=== PATIENT | female | born 1940 | race Caucasian/White ===

== ENCOUNTER → 2016-07-16 | Outpatient (CLI) | payer OTHER, MEDICARE ==
[~2016-07-16] MED LIST: CALC600T9 PO; CATAPLEX B PO; CHOL2000 PO; DICL1GEL12 EX; DOCU100C PO; LAMO100T PO; MRLP17X PO; PARO1TAB27 PO; POTA2.5T PO; PROB1TAB16 PO; ZOLP10TA PO
--- NOTE | 2016-07-17 14:05 | MAMMOGRAPHY REPORT ---
BILATERAL DIGITAL SCREENING MAMMOGRAM WITH CAD: 07/16/2016 CLINICAL HISTORY: Routine screening. Patient has no complaints. TECHNIQUE: Current study was also evaluated with a Computer Aided Detection (CAD) system. Bilatera l CC and MLO views were obtained. COMPARISON: Comparison is made to exams dated: 07/13/2015 mammogram, 06/30/2014 mammogram, 05/18/2013 m ammogram, 06/16/2011 mammogram, 01/10/2010 mammogram, and 01/09/2009 mammogram - [facility]. BREAST COMPOSITION: There are scattered areas of fibroglandular density in both breasts. FINDINGS: There is a small cluster of calcifications within the left subareolar breast, for which sp ot magnification views are recommended for further evaluation. The remainder of both breasts are stable compared to prior exams, without suspicious masses, calcifi cations, or areas of architectural distortion noted. A biopsy marker clip is again noted in the lef t anterior breast. Other scattered bilateral benign-appearing calcifications are stable. IMPRESSION: ACR BI-RADS CATEGORY 0: INCOMPLETE EVALUATION: NEED ADDITIONAL IMAGING EVALUATION Left breast calcifications, for which additional imaging evaluation is recommended. The patient merline l be called to schedule an appointment. Approximately 10% of breast cancers are not detected with mammography. A negative mammographic repor t should not delay biopsy if a clinically suggestive mass is present. Brooke Zapata M.D. ah/:07/16/2016 16:01:19 Studio Operator: Vance TORRES(R)(M), [facility] letter sent: Addl Imaging 0 BI-RADS Code: ACR BI-RADS Category 0: Incomplete Evaluation: Need Additional Imaging Evaluation
== END | disposition home or self-care (01) ==
LOC: C.MAMM 09:59
PROVIDERS: ATTEND Obstetrics & Gynecology
DX: Z12.31 Encounter for screening mammogram for malignant neoplasm of breast (principal); R92.1 Mammographic calcification found on diagnostic imaging of breast

== ENCOUNTER → 2016-07-24 | Outpatient (CLI) | payer OTHER, MEDICARE ==
--- NOTE | 2016-07-24 12:55 | MAMMOGRAPHY REPORT ---
UNILATERAL LEFT DIGITAL DIAGNOSTIC MAMMOGRAM: 07/24/2016 CLINICAL HISTORY: 75-year-old woman called back from screening mammography for new grouped microcalci fications in the anterior left breast. Family history of breast cancer = mother. Personal history o f prior benign left breast biopsy. TECHNIQUE: Spot magnification left CC and ML views were obtained. COMPARISON: Comparison is made to exams dated: 07/16/2016 mammogram, 07/13/2015 mammogram, 06/30/2014 ma mmogram, 05/18/2013 mammogram, 06/16/2011 mammogram, and 02/05/2010 ultrasound biopsy - [facility]. BREAST COMPOSITION: There are scattered areas of fibroglandular density in the left breast. FINDINGS: There is a tiny, 2 mm cluster of microcalcifications in the 12:00 anterior subareolar left breast that is new compared to prior mammograms. On some of the magnification views it appears to b e forming a rim calcification which is benign. However at this point in time the rim is incomplete a nd it remains an indeterminate cluster. No associated mass or architectural distortion. No other ochoa spicious microcalcifications are seen. There are scattered benign coarse calcifications in the anter ior left breast and a stable metallic biopsy marker. We discussed options of short interval follow-u p mammograms versus tissue sampling with stereotactic biopsy and the patient would prefer to biopsy a t this time. IMPRESSION: ACR BI-RADS CATEGORY 4B: INTERMEDIATE SUSPICION FOR MALIGNANCY 1. Left breast stereotactic biopsy is recommended for a new 2 mm cluster of indeterminate microcalci fications in the 12:00 anterior subareolar left breast. These results and recommendations were discussed with the patient at the time of the exam. She tenta tively scheduled the biopsy prior to leaving our department. Approximately 10% of breast cancers are not detected with mammography. A negative mammographic report should not delay biopsy if a clinically suggestive mass is present. Abiola Anderson M.D. ay/:07/24/2016 12:06:19 Nursing Associate: Irma TORRES(Myron)(M), [facility] letter sent: Abnormal 4/5 BI-RADS Code: ACR BI-RADS Category 4B: Intermediate Suspicion For Malignancy
== END | disposition home or self-care (01) ==
LOC: C.MAMM 11:14
PROVIDERS: ATTEND Obstetrics & Gynecology
DX: R92.0 Mammographic microcalcification found on diagnostic imaging of breast (principal)

== ENCOUNTER → 2016-07-26 | Outpatient (CLI) | payer OTHER, MEDICARE ==
[2016-07-26 11:05] LABS: ALT/SGPT 30 U/L (12-78); AST/SGOT 16 U/L (15-37); BLOOD UREA NITROGEN 14 mg/dl (7-18); BUN/CREATININE RATIO 17.4 (10-20); CARBON DIOXIDE 26 mmol/L (21-32); CHLORIDE 110 mmol/L (98-107); CREATININE 0.78 mg/dl (0.60-1.20); GLUCOSE 103 mg/dl (70-99); SODIUM 144 mmol/L (136-145)
[2016-07-26 11:15] LABS: ALB/GLOB RATIO 1.2 (0.9-2); ALKALINE PHOSPHATASE 47 U/L (45-117); CHOLESTEROL 239 mg/dl (0-200); CHOLESTEROL/HDL RATIO 2.3; HDL CHOLESTEROL 105 mg/dl; LDL CHOLESTEROL CALCULATED 121 mg/dl; TRIGLYCERIDES 64 mg/dl (0-150); VERY LOW DENSITY LIPOPROT CALC 13 mg/dl
--- NOTE | 2016-07-31 09:27 | CODING QUERY MEDICAL NECESSITY ---
SUPPORTING DIAGNOSIS NEEDED Shelley PA, A supporting diagnosis is required for the test/procedure performed on this patient in order for us to be reimbursed by the patient's insurance. Please provide a supporting diagnosis for the following test/procedure listed below next to the test name along with your signature. *If there is no additional diagnosis for this patient that would support the following test/procedure please document that below next to the test/procedure. Test(s)/Procedure(s) that require a supporting diagnosis: * ([id number]) VITAMIN D ASSAY DIAGNOSIS: DATE OF SERVICE: 07/26/16 Provider Signature: Date: Thank you Richy Gaxiola [facility] Information Management Once completed, please kindly fax back to [phone] For questions please call [phone]
== END | disposition home or self-care (01) ==
LOC: C.LABBC 07:45
PROVIDERS: ATTEND Physician Assistant Medical
DX: R53.82 Chronic fatigue, unspecified (principal); E03.9 Hypothyroidism, unspecified; K58.9 Irritable bowel syndrome, unspecified; M85.80 Other specified disorders of bone density and structure, unspecified site

== ENCOUNTER → 2016-08-04 | Outpatient (CLI) | payer OTHER, MEDICARE ==
--- NOTE | 2016-08-04 13:29 | Discharge Instructions ---
Discharge Instructions Procedure Procedure Date: Aug 04, 2016. Reason for visit: Left Calcs. Discharge Discharge Date: Aug 04, 2016. Discharge Diagnosis: post left breast stereotactic guided biopsy Instructions Activity Recommendations: Additional Limitations (see below) Return to School/Work: no limitations Recommended Home Diet: No Limitations Provider Instructions: ACTIVITY RECOMMENDATIONS: * No lifting, pushing, pulling or exercising the affected side for three days. RETURN TO SCHOOL/WORK: * You may return to work/school after the procedure, but do not perform any strenuous activities for 24 to 48 hours. MEDICATIONS: * Tylenol (two 325 mg) every four to six hours if needed for mild pain (if not allergic to Tylenol). DIET: * Resume previous diet. SPECIAL CARE INSTRUCTIONS: * Keep biopsy site dry for 24 hours. May shower after 24 hours, but do not soak (bathe) incision. * May remove Tegaderm (plastic patch) tomorrow AFTER showering. * Leave the steri-strips on for one week. Allow the steri-strips to fall off by themselves. If not off after one week, you may remove them. You may place a Bandaid crosswise over the strips, if desired. * Apply ice 10 minutes on and 10 minutes off as needed. * Wear a bra at bedtime to sleep more comfortably for 2-3 days. * Your referring physician should have the results after approximately 5 to 7 business days. * Call for unusual bleeding, fever, drainage, etc or if you have any questions call [phone] during normal business hours or after hours call Dr Anderson, . FOLLOW UP VISIT: Follow-up with Referring Physician as scheduled. Allergies Coded Allergies: Barium (Verified Allergy, Mild, ITCHING, 03/09/15) Ceftriaxone (Verified Allergy, Unknown, DIFFICULTY SLEEPING, 03/09/15) Fluoxetine (Verified Allergy, Unknown, HEART PALPITATIONS, 03/09/15) Metoclopramide (Verified Allergy, Unknown, HEART PALPITATIONS, 03/09/15) Sulfa Drugs (Verified Allergy, Unknown, UNKNOWN, 03/09/15) Amoxicillin (Verified Adverse Reaction, Mild, DIARRHEA, 03/09/15) Clavulanic Acid (Verified Adverse Reaction, Mild, DIARRHEA, 03/09/15) Nitrofurantoin (Verified Adverse Reaction, Mild, ITCHY, 03/09/15) Methylprednisolone (Unverified Adverse Reaction, Unknown, heart palpitations, 03/09/15) Heidi Jacques Recommendations: Call your doctor if: * Temperature above 101 degrees * Pain not relieved by pain medicine ordered * There is increased drainage or redness from any incision * You have any unanswered questions or concerns. Your Doctors Instructions noted above were prepared by provider Abiola Anderson. Patient Signature Section: Patient Instructions Signature Page Fannie Gutierrez Patient (or Guardian) Signature/Date: I have read and understand the instructions given to me by my caregivers. Caregiver/RN/Doctor Signature/Date: The above-named patient and/or guardian has received patient instructions on this date. + Original Patient Signature Page (only) stays with chart. Please make copy for patient.
--- NOTE | 2016-08-05 08:03 | MAMMOGRAPHY REPORT ---
STEREOTACTIC GUIDED BIOPSY LEFT BREAST: 08/04/2016 CLINICAL HISTORY: Indeterminate 2 mm cluster of microcalcifications in the 12:00 anterior left breast . Patient presented for stereotactic biopsy. COMPARISON: Comparison is made to exams dated: 07/16/2016 mammogram, 07/24/2016 mammogram, 07/13/2015 ma mmogram, 06/30/2014 mammogram, 05/18/2013 mammogram, and 06/16/2011 mammogram - [facility]. PATIENT CONSENT: After explaining the risks, benefits and alternatives of the procedure to the patien t, informed consent was obtained both verbally and in writing. Specific risks include: Bleeding, inf ection, puncture of adjacent structure, pain, nontarget biopsy, sampling error, metal allergy and med ication reaction. PROCEDURE DESCRIPTION: A time-out was performed and the left breast was confirmed as the site of biop sy. The patient was placed prone on the stereotactic biopsy table and the breast was placed in CC fro m above compression. A a operator image was obtained that demonstrated the clustered microcalcifications i n question. They are amenable to sterotactic biopsy. Then +15 and -15 stereo pair images were obta ined. The calcifications were targeted utilizing the coordinates obtained by the computer. The skin was prepped with Betadine. 1% Lidocaine with and without epinipherine was administered as local anest hesia. A small skin incision was made. Through the incision, the needle was inserted to the depth de termined by the computer. 7 samples were obtained using a zeenworldiva 9-gauge vacuum-assisted biopsy device. The specimen radiograph demonstrated several chemical sales representative microcalcifications, therefore, a dumbbell shaped metallic marker was placed at the biopsy site. There was no immediate complication. Hemostasis was achieved after several minutes of manual compression. The samples were sent to pathyuliet nieves in two appropriately labeled containers, "with calcifications" and "without calcifications". All of the samples were obtained from the same single biopsy site. Postprocedure CC and ML views of the left breast were obtained. There is a new dumbbell shaped meta llic biopsy marker and no significant hematoma in the 12:00 anterior left breast, at the site of the biopsied cluster of microcalcifications. There is a stable ribbon shaped clip in the lower outer ant erior left breast, from prior benign biopsy. IMPRESSION: STEREOTACTIC GUIDED BIOPSY Status post left breast stereotactic guided biopsy of a small cluster of microcalcifications in the 1 2:00 anterior breast, with dumbbell-shaped metallic biopsy marker placed at the site. The patient will receive notification of the biopsy results from her referring physician. Abiola Anderson M.D. ay/:08/04/2016 13:48:08 Pyrotechnist: Irma TORRES(Myron)(M), [facility]
--- NOTE | 2016-08-05 08:03 | MAMMOGRAPHY REPORT ---
UNILATERAL LEFT DIGITAL DIAGNOSTIC MAMMOGRAM: 08/04/2016 CLINICAL HISTORY: Status post left breast stereotactic biopsy of a cluster of microcalcifications in the anterior aspect of the breast. Please refer to the report from left breast stereotactic biopsy performed at the same time for full d etail. IMPRESSION: POST PROCEDURE IMAGING FOR MARKER PLACEMENT Please refer to the report from left breast stereotactic biopsy performed at the same time for full d etail. Approximately 10% of breast cancers are not detected with mammography. A negative mammographic report should not delay biopsy if a clinically suggestive mass is present. Abiola Anderson M.D. ay/:08/04/2016 13:23:23 Wetlands Conservation Laborer: Irma TORRES(Myron)(M), [facility] BI-RADS Code: Post Procedure Imaging For Marker Placement
== END | disposition home or self-care (01) ==
LOC: C.MAMM 12:30
PROVIDERS: ATTEND Obstetrics & Gynecology
DX: R92.0 Mammographic microcalcification found on diagnostic imaging of breast (principal); N60.12 Diffuse cystic mastopathy of left breast; N60.82 Other benign mammary dysplasias of left breast

== ENCOUNTER → 2016-10-14 | Outpatient (CLI) | payer OTHER, MEDICARE ==
[2016-10-14 11:55] LABS: BLOOD UREA NITROGEN 14 mg/dl (7-18); BUN/CREATININE RATIO 17.1 (10-20); CALCIUM 9.4 mg/dl (8.5-10.1); CARBON DIOXIDE 28 mmol/L (21-32); CHLORIDE 109 mmol/L (98-107); CREATININE 0.82 mg/dl (0.60-1.20); GLUCOSE 93 mg/dl (70-99); POTASSIUM 3.9 mmol/L (3.5-5.1); SODIUM 142 mmol/L (136-145)
== END | disposition home or self-care (01) ==
LOC: C.LABBC 08:04
PROVIDERS: ATTEND Internal Medicine
DX: R91.1 Solitary pulmonary nodule (principal); R41.3 Other amnesia

== ENCOUNTER → 2016-10-15 | Outpatient (CLI) | payer OTHER, MEDICARE ==
[~2016-10-15] MED LIST changes: +GADAVIST IV PRN
--- NOTE | 2016-10-15 13:50 | DIAGNOSTIC IMAGING REPORT ---
CAROTID DOPPLER NECK ART CLINICAL HISTORY: 76 years-old Female presenting with memory loss. TECHNIQUE: Real-time grayscale and color and spectral Doppler ultrasound imaging of the bilateral carotid arteries was performed. NASCET criteria was used in evaluating this study. COMPARISON: None. FINDINGS: Right: Common carotid: Patent. Peak systolic velocity 100 cm/s. Internal carotid artery: Patent. Peak systolic velocity 82 cm/s. External carotid artery: Patent. Peak systolic velocity 96 cm/s. Systolic ratio: 0.8. Left: Common carotid: Patent. Peak systolic velocity 93 cm/s. Internal carotid artery: Patent. Peak systolic velocity 81 cm/s. External carotid artery: Patent. Peak systolic velocity 62 cm/s. Systolic ratio: 0.9. Bilateral antegrade flow within the vertebral arteries. Reference ranges: Stenosis measurements are compared velocity parameters. Normal ICA peak systolic velocity less than 125 cm/s. Normal ICA peak systolic velocity to common carotid artery velocity ratio is less than 2: less than 2 equates to less than 50% stenosis, 2-4 equates to 50-69% stenosis, greater than 4 equates to greater than or equal to 70% stenosis. Normal ICA end-diastolic velocity less than 40. Blood pressure Brachial: Right: 106/63 mmHg, Left: 104/66 mmHg. Other: Incidentally noted thyroid nodules, the largest measuring 3.0 x 1.5 x 2.1 in the right thyroid lobe. This nodule is well-defined, hypoechoic with minimal internal vascularity and wider than tall. No appreciable calcifications. This is intermediate in suspicion by MIRNA criteria. IMPRESSION: 1. No hemodynamically significant stenosis seen within the carotid arteries. 2. Ultrasound-guided fine-needle aspiration recommended for the 3 cm right thyroid lobe hypoechoic nodule per the [place] [employer] criteria. Electronically signed by: Arturo Reid M.D. 10/15/2016 1:48 PM Dictated Date/Time: 10/15/2016 1:45 PM
--- NOTE | 2016-10-15 16:19 | DIAGNOSTIC IMAGING REPORT ---
MRI OF THE BRAIN COMBO CLINICAL HISTORY: Memory loss. COMPARISON STUDY: CT of the brain dated 04/06/2013. TECHNIQUE: MRI of the brain was performed utilizing various T1 and T2-weighted sequences in the axial, sagittal, and coronal planes. Contrast-enhanced sequences were acquired following the administration of 6.8 cc of Gadavist. FINDINGS: Brain parenchyma: There are age-related involutional changes noting minimal subcortical and periventricular microangiopathic disease. There is no hemorrhage or mass effect. There is no restricted diffusion to suggest acute ischemia. No enhancing mass lesion is identified on the postcontrast images. Leon-white matter differentiation is preserved. No extra-axial fluid collection is seen. The cerebellar tonsils are normal in configuration. Ventricles, sulci, and cisterns: Prominent secondary to involutional change. Pituitary and sella: Unremarkable. Intracranial vasculature: Normal flow voids are maintained at the skull base. Orbits: The bony orbits are grossly intact. Orbital contents are normal in appearance noting bilateral ocular lens implants. Sinuses and mastoids: Clear. Calvarium: Unremarkable. Cervical cord: Partially visualized cervical spinal cord is normal in morphology and signal intensity. IMPRESSION: No acute intracranial abnormality. Electronically signed by: Popeye Ordonez M.D. 10/15/2016 4:18 PM Dictated Date/Time: 10/15/2016 4:14 PM
--- NOTE | 2016-10-20 13:23 | CODING QUERY MEDICAL NECESSITY ---
CQSUPPORTING DIAGNOSIS NEEDED A supporting diagnosis is required for the test/procedure performed on this patient in order for us to be reimbursed by the patient's insurance. Please provide a supporting diagnosis for the following test/procedure listed below next to the test name along with your signature. *If there is no additional diagnosis for this patient that would support the following test/procedure please document that below next to the test/procedure. Test(s)/Procedure(s) that require a supporting diagnosis: DOS 10/15/16 NON-INVASIVE CEREBROVASCULAR ARTERIAL STUDIES Provider Signature: Date: Thank you Loreta Meade [facility] Information Management Once completed, please kindly fax back to [phone] For questions please call [phone]
== END | disposition home or self-care (01) ==
LOC: C.ULTR 13:07
PROVIDERS: ATTEND Internal Medicine
DX: R41.3 Other amnesia (principal); G45.9 Transient cerebral ischemic attack, unspecified

== ENCOUNTER → 2016-10-29 | Outpatient (CLI) | payer OTHER, MEDICARE ==
[~2016-10-29] MED LIST changes: -GADAVIST IV PRN
--- NOTE | 2016-10-29 11:01 | DIAGNOSTIC IMAGING REPORT ---
THYROID ULTRASOUND HISTORY: Follow-up thyroid NODULES SEEN ON CAROTID DOPPLER COMPARISON: Carotid Doppler 10/15/2016. FINDINGS: Right lobe: 5.1 x 1.6 x 2.2 cm. Multiple nodules identified with the dominant hypoechoic nodule measuring 2.9 x 1.9 cm. There is a 1.8 x 1.1 x 0.8 cm interpolar solid and cystic nodule. This contains a few punctate echogenic foci which may represent colloid. There is also a 1.2 cm upper pole hypoechoic nodule. Left lobe: 5.7 x 1.4 x 1.4 cm. There are 3 nodules with the largest in the interpolar region measuring 2.0 x 1.5 x 0.8 cm. This contains punctate internal calcifications. There are 2 additional solid and cystic nodules measuring 1 cm and 7 mm in size within the lower pole. Isthmus: 2 mm in thickness. No nodules. IMPRESSION: Multinodular thyroid gland with the dominant nodule on the right measuring 2.9 cm and the dominant nodule on the left measuring 2.0 cm. Ultrasound guided fine-needle aspiration of these dominant nodules is recommended. Electronically signed by: Vivek Carlos M.D. 10/29/2016 10:59 AM Dictated Date/Time: 10/29/2016 10:52 AM
--- NOTE | 2016-10-29 12:47 | DIAGNOSTIC IMAGING REPORT ---
ULTRASOUND-GUIDED FINE-NEEDLE ASPIRATION THYROID CLINICAL HISTORY: Bilateral thyroid nodules. COMPARISON STUDY: Thyroid ultrasound of same day. RIGHT THYROID NODULE: PROCEDURE: The risks, benefits, and alternatives to the procedure were discussed with the patient. Written informed consent was obtained. The patient was placed supine in ultrasound, and the 2.9 cm nodule in the right lobe of the thyroid was localized by ultrasound and selected for fine needle aspiration. The right neck was prepped and draped in the usual sterile fashion. The nodule was aspirated under ultrasound guidance with 3 passes utilizing 25-gauge needles. Specimens were reviewed by the pathologist in real-time and deemed adequate for diagnosis. The patient tolerated the procedure well. LEFT THYROID NODULE: PROCEDURE: The risks, benefits, and alternatives to the procedure were discussed with the patient. Written informed consent was obtained. The patient was placed supine in ultrasound, and the 2.0 cm nodule in the left lobe of the thyroid was localized by ultrasound and selected for fine needle aspiration. The left neck was prepped and draped in the usual sterile fashion. The nodule was aspirated under ultrasound guidance with 2 passes utilizing 25-gauge needles. Specimens were reviewed by the pathologist in real-time and deemed adequate for diagnosis. The patient tolerated the procedure well and left the department in satisfactory condition. IMPRESSION: Completed fine-needle aspiration of right and left thyroid lobe nodules as above. The above report was generated using voice recognition software. It may contain grammatical, syntax or spelling errors. Electronically signed by: Rodney Roa M.D. 10/29/2016 12:46 PM Dictated Date/Time: 10/29/2016 12:39 PM
== END | disposition home or self-care (01) ==
LOC: C.ULTR 09:35
PROVIDERS: ATTEND Internal Medicine
DX: E04.1 Nontoxic single thyroid nodule (principal)

== ENCOUNTER → 2017-09-10 | Outpatient (CLI) | payer OTHER, MEDICARE | END | disposition home or self-care (01) | LOC: C.MAMM 09:13 | PROVIDERS: ATTEND Physician Assistant Medical | DX: M85.851 Other specified disorders of bone density and structure, right thigh (principal); M85.852 Other specified disorders of bone density and structure, left thigh ==